=== PATIENT | female | born 1980 | race Caucasian/White ===

== ENCOUNTER 2018-03-24 08:17 | Day surgery (SDC) | payer OTHER ==
[~2018-03-24 08:17] MED LIST: SOD CHLORIDE 0.9% 1,000 ML IV
[2018-03-24 09:17] LABS: ADD MAN DIFF? NO
[2018-03-24 09:19] LABS: WHITE BLOOD COUNT 5.2 10^3/ul (4.8-10.8)
[2018-03-24 09:19] LABS: ABNORMAL IP MESSAGE 1; BASOPHILS % 0.8 % (0.0-2.0); EOSINOPHILS # 0.2 10^3/ul (0.0-0.5); EOSINOPHILS % 2.9 % (0.0-7.0); HEMATOCRIT 28.6 % (37.0-47.0); LYMPHOCYTES # 1.3 10^3/ul (0.8-2.9); LYMPHOCYTES % 24.9 % (15.0-51.0); MEAN CORPUSCULAR HEMOGLOBIN 20.2 pg (29.0-33.0); MEAN CORPUSCULAR HGB CONC 28.3 g/dl (32.0-37.0); MEAN CORPUSCULAR VOLUME 71.3 fl (82.0-101.0); MEAN PLATELET VOLUME 9.6 fl (7.4-10.4); MONOCYTE # 0.3 10^3/ul (0.3-0.9); MONOCYTES % 5.8 % (0.0-11.0); NEUTROPHIL # 3.4 10^3/ul (1.6-7.5); NEUTROPHILS % 65.4 % (39.0-77.0); PLATELET COUNT 395 10^3/UL (140-415); RED BLOOD COUNT 4.01 10^6/ul (4.20-5.40); RED CELL DISTRIBUTION WIDTH 25.3 % (11.5-14.5)
[2018-03-24 09:25] LABS: HOLD TRANSMISSIONS 1; POSITIVE DIFF @See below
[2018-03-24 09:28] LABS: HEMOGLOBIN 8.1 g/dl (12.0-16.0)
[2018-03-24 09:46] LABS: ANION GAP 11 (5-13); BLOOD UREA NITROGEN 7 mg/dl (7-20); CALCIUM 9.5 mg/dl (8.4-10.2); CARBON DIOXIDE 23 mmol/L (21-31); CHLORIDE 108 mmol/L (97-110); CREATININE 0.55 mg/dl (0.44-1.00); Estimated GFR > 60 mL/min (>60); GLUCOSE 96 mg/dl (70-220); POTASSIUM 4.4 mmol/L (3.5-5.1); SODIUM 142 mmol/L (135-144)
[2018-03-24] MEDS ORDERED: BUPIVACAINE 0.5%/EPI (SDV) 30 ML INJ (09:47)
[2018-03-24 09:49] LABS: PROTIME 13.3 Sec (11.9-14.9)
[2018-03-24 09:50] LABS: PARTIAL THROMBOPLASTIN TIME 30.2 Sec (23.0-35.0)
[2018-03-24] MEDS ORDERED: PROPOFOL 20 ML (09:54)
[2018-03-24] MEDS ORDERED: FENTAnyl 50 MCG/ML VIAL (09:54)
[2018-03-24] MEDS ORDERED: LIDOCAINE 2% (SDV) 5 ML INJ (09:54)
[2018-03-24] MEDS ORDERED: MIDAZOLAM 1 MG/ML 2 ML INJ (09:54)
[2018-03-24] MEDS ORDERED: ONDANSETRON 4 MG INJ IV (10:00)
[2018-03-24] MEDS ORDERED: HYDROmorphONE 1 MG/5 ML IV SYRINGE IV (10:00)
[2018-03-24] MEDS ORDERED: FENTAnyl 50 MCG/ML VIAL IV (10:00)
[2018-03-24] MEDS ORDERED: DIPHENHYDRAMINE 50 MG INJ IV (10:00)
[2018-03-24] MEDS ORDERED: OXYCODONE/ACETAMINOPHEN (5/325) TAB PO (10:00)
[2018-03-24] MEDS ORDERED: MEPERIDINE 25 MG INJ IV (10:00)
[2018-03-24] MEDS ORDERED: DEXAMETHASONE 4 MG/ML 1 ML INJ (10:11)
[2018-03-24] MEDS ORDERED: FAMOTIDINE 20 MG INJ (10:11)
[2018-03-24] MEDS ORDERED: ONDANSETRON 4 MG INJ (10:11)
[2018-03-24] MEDS ORDERED: BUPIVACAINE 0.5% (SDV) 30 ML INJ (10:20)
[2018-03-24] MEDS ORDERED: EPHEDrine SULFATE 50 MG/5 ML SYG (10:27)
[2018-03-24] MEDS: BUPIVACAINE 0.5% (SDV) 30 ML INJ (10:28)
== END 2018-03-24 12:04 | disposition home or self-care (01) ==
LOC: SDS 08:17
DX: N60.02 Solitary cyst of left breast (principal)
CPT/HCPCS: 19120; 80048; 85025; 85610; 85730; 88305